=== PATIENT | female | born 1995 | race African-American/Black ===

== ENCOUNTER 2017-06-23 14:59 | Emergency (ER) | payer OTHER ==
[~2017-06-23] VITALS: Ht 165.1 cm; Wt 56.7 kg
[2017-06-23 15:45] LABS: BACTERIA,URINE FEW /HPF (0-FEW); BILIRUBIN,URINE NEG (NEG); CLARITY,URINE CLEAR; COLOR,URINE YELLOW; GLUCOSE,URINE NEG (NEG); NITRITE,URINE NEG (NEG); SQUAMOUS EPITHELIAL CELL,UR FEW /LPF; UROBILINOGEN,URINE 0.2 mg/dL (0.2 mg/dL)
--- NOTE | 2017-06-23 16:21 | PHYS DOC ---
Past History Past Medical History: No Pertinent History Past Surgical History: No Surgical History Alcohol Use: None Drug Use: None Adult General Chief Complaint Chief Complaint: ABDOMINAL PAIN IN HPI HPI 21-year-old female patient with LMP of May 02 and 3 home positive test one week ago without [employer] evaluation complaining of right lower quadrant pain since last night and rated her pain is over 10. Patient states she was able to fall asleep and this morning woke up with pain 4/10 patient denies dizziness, shortness of breath, vaginal bleeding, urinary symptoms, nausea and vomiting, generalized weakness. Review of Systems Review of Systems Constitutional: Denies fever or chills [] Eyes: Denies change in visual acuity, redness, or eye pain [] HENT: Denies nasal congestion or sore throat [] Respiratory: Denies cough or shortness of breath [] Cardiovascular: No additional information not addressed in HPI [] GI: Reports abdominal pain, denies nausea, vomiting, bloody stools or diarrhea [ ] : Denies dysuria or hematuria [] Musculoskeletal: Denies back pain or joint pain [] Integument: Denies rash or skin lesions [] Neurologic: Denies headache, focal weakness or sensory changes [] Endocrine: Denies polyuria or polydipsia [] All other systems were reviewed and found to be within normal limits, except as documented in this note. Allergies Allergies Allergies Coded Allergies Type Severity Reaction Last Updated Verified No Known Drug Allergies 06/23/17 No Physical Exam Physical Exam Constitutional: Well developed, well nourished, no acute distress, non-toxic appearance. [] HENT: Normocephalic, atraumatic, bilateral external ears normal, oropharynx moist, no oral exudates, nose normal. [] Eyes: PERRLA, EOMI, conjunctiva normal, no discharge. [] Neck: Normal range of motion, no tenderness, supple, no stridor. [] Cardiovascular:Heart rate regular rhythm, no murmur [] Lungs & Thorax: Bilateral breath sounds clear to auscultation [] Abdomen: Bowel sounds normal, soft, no tenderness, no masses, no pulsatile masses. Patient refuses vaginal exam.[] Skin: Warm, dry, no erythema, no rash. [] Back: No tenderness, no CVA tenderness. [] Extremities: No tenderness, no cyanosis, no clubbing, ROM intact, no edema. [] Neurologic: Alert and oriented X 3, normal motor function, normal sensory function, no focal deficits noted. [] Psychologic: Affect normal, judgement normal, mood normal. [] Current Patient Data Vital Signs Vital Signs Date Time Temp Pulse Resp B/P (MAP) Pulse Ox O2 Delivery O2 Flow Rate FiO2 06/23/17 15:05 98.4 74 16 100 Room Air Lab Results Laboratory Tests Test 06/23/17 14:21 06/23/17 15:12 POC Urine HCG, Qualitative hcg positive (Negative) Urine Collection Type Unknown Urine Color Yellow Urine Clarity Clear Urine pH 7.0 Urine Specific Rice 1.015 Urine Protein Neg (NEG-TRACE) Urine Glucose (UA) Neg mg/dL (NEG) Urine Ketones (Stick) Neg mg/dL (NEG) Urine Blood Neg (NEG) Urine Nitrite Neg (NEG) Urine Bilirubin Neg (NEG) Urine Urobilinogen Dipstick 0.2 mg/dL (0.2 mg/dL) Urine Leukocyte Esterase Trace (NEG) Urine RBC 1-2 /HPF (0-2) Urine WBC 1-4 /HPF (0-4) Urine Squamous Epithelial Cells Few /LPF Urine Bacteria Few /HPF (0-FEW) EKG EKG [] Radiology/Procedures Radiology/Procedures [] [address] [address] IMAGING REPORT Signed PATIENT: JAMESON ALFREDO ACCOUNT: [id number] : 1995 LOCATION: ER AGE: 21 SEX: F EXAM STATUS: PRE ER ORD. PHYSICIAN: JANIE VINSON MD REASON: with abdominal pain PROCEDURE: OB <14 WKS W/TV Obstetrical ultrasound, 06/23/2017: History: Abdominal cramping Transabdominal and transvaginal scans were obtained. The uterus contains a single gestational sac. The mean gestational sac diameter is 1.1 cm compatible with a gestational age of 5 weeks and 6 days. The gestational sac contains a pole demonstrating a crown-rump length of 7 mm compatible with a gestational age of 6 weeks and 4 days. A small yolk sac is seen. No heart motion is evident. Current guidelines indicate that the lack of visible heart motion can be normal up to a crown-rump length of 7 mm, and therefore this is a worrisome, but not definitely abnormal finding in this case. There is abundant decidual reaction around the gestational sac. A small amount of subchorionic hemorrhage cannot be excluded. The ovaries are of normal size. They contain small follicular cysts. No adnexal mass is seen. A small amount of free fluid is present in the pelvis. IMPRESSION: 1. Early intrauterine as described above, without demonstrable heart motion raising questions as to the viability of this . Sonographic follow-up is suggested.. 2. Trace amount of free fluid in the pelvis. DICTATED AND SIGNED BY: SURENDRA OSCAR MD DATE: 06/23/17 3969 CC: JANIE VINSON MD ~ Course & Med Decision Making Course & Med Decision Making Pertinent Labs and Imaging studies reviewed. (See chart for details) Evaluation of patient in ER showed 21-year-old female patient at 7 weeks of gestation complaining of right lower quadrant pain intermittently since last night without vaginal bleeding. Patient had unremarkable physical exam. Labs showed hCG level more than 6000. Ultrasound showed early intrauterine without heart rate. Patient for about test results and is to follow-up with her [employer] in 48 hours for repeat hCG level. Patient instructed to take Tylenol as needed for pain. Dragon Disclaimer Dragon Disclaimer This electronic medical record was generated, in whole or in part, using a voice recognition dictation system. Departure Departure: Impression: Primary Impression: Abdominal pain in Disposition: HOME, SELF-CARE (At 1729) Condition: STABLE Patient Instructions: Abdominal Pain During Additional Instructions: [facility]-up with [facility] physician call [phone] to make an appointment in 2 days to recheck the blood test for level of Drink plenty of liquids Follow-up with your primary care physician in 3-5 days Return to ER if not getting better JANIE VINSON MD Jun 23, 2017 16:21
--- NOTE | 2017-06-23 16:25 | RAD ---
Obstetrical ultrasound, 06/23/2017: History: Abdominal cramping Transabdominal and transvaginal scans were obtained. The uterus contains a single gestational sac. The mean gestational sac diameter is 1.1 cm compatible with a gestational age of 5 weeks and 6 days. The gestational sac contains a pole demonstrating a crown-rump length of 7 mm compatible with a gestational age of 6 weeks and 4 days. A small yolk sac is seen. No heart motion is evident. Current guidelines indicate that the lack of visible heart motion can be normal up to a crown-rump length of 7 mm, and therefore this is a worrisome, but not definitely abnormal finding in this case. There is abundant decidual reaction around the gestational sac. A small amount of subchorionic hemorrhage cannot be excluded. The ovaries are of normal size. They contain small follicular cysts. No adnexal mass is seen. A small amount of free fluid is present in the pelvis. IMPRESSION: 1. Early intrauterine as described above, without demonstrable heart motion raising questions as to the viability of this . Sonographic follow-up is suggested.. 2. Trace amount of free fluid in the pelvis.
[2017-06-23 16:47] LABS: BASO % 0 % (0-3); EOS # 0.1 x10^3/uL (0.0-0.7); EOS % 1 % (0-3); HEMATOCRIT 39.5 % (36.0-47.0); HEMOGLOBIN 13.4 g/dL (12.0-15.5); LYMPH # 2.8 x10^3/uL (1.0-4.8); LYMPH % 26 % (24-48); MEAN CORPUSCULAR HEMOGLOBIN 29 pg (25-35); MEAN CORPUSCULAR HGB CONC 34 g/dL (31-37); MEAN CORPUSCULAR VOLUME 85 fL (79-100); MONO # 1.1 x10^3/uL (0.0-1.1); MONO % 10 % (0-9); NEUT # 6.6 x10^3uL (1.8-7.7); NEUT % 62 % (31-73); PLATELET COUNT 281 x10^3/uL (140-400); RED BLOOD COUNT 4.67 x10^6/uL (3.50-5.40); RED CELL DISTRIBUTION WIDTH 13.6 % (11.5-14.5); WHITE BLOOD COUNT 10.6 x10^3/uL (4.0-11.0)
[2017-06-23 16:59] LABS: ALBUMIN 3.9 g/dL (3.4-5.0); CALCIUM 8.9 mg/dL (8.5-10.1); CREATININE 0.8 mg/dL (0.6-1.0); GFR 90.5; POTASSIUM 3.5 mmol/L (3.5-5.1); TOTAL BILIRUBIN 0.3 mg/dL (0.2-1.0); TOTAL PROTEIN 7.7 g/dL (6.4-8.2)
[2017-06-23 17:35] VITALS: BP 106/66
== END 2017-06-23 17:40 | disposition home or self-care (01) ==
LOC: ER 14:59
DX: O26.891 Other specified pregnancy related conditions, first trimester (principal); R10.31 Right lower quadrant pain; Z3A.00 Weeks of gestation of pregnancy not specified
CPT/HCPCS: 36415; 76801; 76817; 80053; 81001; 81025; 84702; 85025; 86900; 86901; 87086; 99285-25